=== PATIENT | female | born 1970 | race Caucasian/White ===

== ENCOUNTER 2019-06-09 20:22 | Emergency (ER) | payer OTHER ==
[2019-06-09] MEDS ORDERED: ONDANSETRON 4 MG TAB.RAPDIS PO ONE (21:09)
--- NOTE | 2019-06-09 21:10 | ER Document Report ---
ED Medical Screen (RME) - General Stated Complaint: JAW PAIN/NECK AND UPPER PAIN/VOMITING Time Seen by Provider: 06/09/19 21:04 Mode of Arrival: Wheelchair Information source: Patient Notes: 49-year-old female with history of high blood pressure and psoriasis presents emergency department with reports that this morning after eating peanut butter toast she had severe upper chest pain into her neck. She reports she kept belching. She reports she is had this feeling all day. After 2 mile walk she came home and had severe diarrhea. She also reports vomiting. Denies history of cardiac disease. Reports she has been drinking a lot more wine these days. Has not had any today. Patient complains of nausea also. I have greeted and performed a rapid initial assessment of this patient. A comprehensive ED assessment and evaluation of the patient, analysis of test results and completion of the medical decision making process will be conducted by additional ED providers. - Related Data Allergies/Adverse Reactions: No Known Allergies Allergy (Unverified 06/09/19 21:03) Physical Exam - Vital signs Vitals: Temp Pulse Resp BP Pulse Ox 98.7 F 84 16 179/97 H 100 06/09/19 20:29 06/09/19 20:29 06/09/19 20:29 06/09/19 20:29 06/09/19 20:29 Course - Vital Signs Vital signs: Temp Pulse Resp BP Pulse Ox 98.7 F 84 16 179/97 H 100 06/09/19 20:29 06/09/19 20:29 06/09/19 20:29 06/09/19 20:29 06/09/19 20:29
--- NOTE | 2019-06-09 21:57 | RADIOLOGY REPORT (SQ) ---
EXAM DESCRIPTION: XR CHEST 1 VIEW COMPLETED DATE/TME: 06/09/2019 21:07 CLINICAL HISTORY: 49 years Female JAW PAIN COMPARISON: None. FINDINGS: The cardiomediastinal silhouette appears unremarkable. No consolidating infiltrates or pleural effusions. No pneumothorax. Tiny metallic object overlies the central chest of uncertain clinical significance. This may represent something overlying the patient such as a snap. IMPRESSION: No acute abnormality is identified. Question foreign object overlying the patient versus other location
[2019-06-09] MEDS ORDERED: PANTOPRAZOLE SODIUM 40 MG VIAL IV ONE (22:14)
[2019-06-09] MEDS ORDERED: MAG HYDROX/AL HYDROX/SIMETH SUSP 30 ML UDCUP PO ONE (22:15)
[2019-06-09 22:28] LABS: APPEARANCE,URINE SLIGHTLY-CLOUDY; BILIRUBIN,URINE NEGATIVE (NEGATIVE); COLOR,URINE YELLOW; GLUCOSE, URINE NEGATIVE (NEGATIVE); KETONES,URINE 80 mg/dL (NEGATIVE); LEUKOCYTE ESTERASE,URINE NEGATIVE (NEGATIVE); NITRITE,URINE NEGATIVE (NEGATIVE); PROTEIN,URINE 30 mg/dL (NEGATIVE); URINE SPECIFIC GRAVITY 1.026; UROBILINOGEN,URINE NEGATIVE mg/dL (<2.0)
[2019-06-09 22:35] LABS: ABSOLUTE LYMPHOCYTES (AUTO) 0.6 10^3/uL (0.5-4.7); ABSOLUTE MONOCYTES (AUTO) 0.6 10^3/uL (0.1-1.4); ABSOLUTE NEUT (AUTO) 4.5 10^3/uL (1.7-8.2); BASOPHILS % (AUTO) 0.8 % (0-2); EOSINOPHILS % (AUTO) 0.1 % (0-6); HEMATOCRIT 41.1 % (36.0-47.0); HEMOGLOBIN 14.3 g/dL (12.0-15.5); LYMPHOCYTES % (AUTO) 11.1 % (13-45); MEAN CORPUSCULAR HEMOGLOBIN 34.5 pg (27.0-33.4); MEAN CORPUSCULAR HGB CONC 34.8 g/dL (32.0-36.0); MEAN CORPUSCULAR VOLUME 99 fl (80-97); MONOCYTES % (AUTO) 9.8 % (3-13); PLATELET COUNT 249 10^3/uL (150-450); RED BLOOD COUNT 4.15 10^6/uL (3.72-5.28); RED CELL DISTRIBUTION WIDTH 14.2 % (11.5-14.0); SEGMENTED NEUTROPHILS % (AUTO) 78.2 % (42-78); TOTAL CELLS COUNTED % (AUTO) 100 %; WHITE BLOOD COUNT 5.7 10^3/uL (4.0-10.5)
[2019-06-09 22:51] LABS: ALKALINE PHOSPHATASE 102 U/L (38-126); AMYLASE 65 U/L (30-110); ANION GAP 12 (5-19); ASPARTATE AMINO TRANSFERASE 127 U/L (14-36); BILIRUBIN,TOTAL 0.9 mg/dL (0.2-1.3); BLOOD UREA NITROGEN 14 mg/dL (7-20); CALCIUM 9.7 mg/dL (8.4-10.2); CARBON DIOXIDE 27 mmol/L (22-30); CHLORIDE 92 mmol/L (98-107); GLUCOSE 97 mg/dL (75-110); POTASSIUM 4.3 mmol/L (3.6-5.0); TOTAL PROTEIN 7.8 g/dL (6.3-8.2)
--- NOTE | 2019-06-09 22:57 | ER Document Report ---
ED General - General Chief Complaint: Epigastric Pain Stated Complaint: JAW PAIN/NECK AND UPPER PAIN/VOMITING Time Seen by Provider: 06/09/19 21:04 Mode of Arrival: Wheelchair - [facility] Notes: Chief complaint: Epigastric pain HPI:49-year-old female with history of high blood pressure and psoriasis presents emergency department with reports that this morning after eating peanut butter toast she had severe burning upper chest pain into her neck. She reports she kept belching. She reports she is had this feeling all day. After 2 mile walk she came home and had severe diarrhea. She also reports vomiting. Denies history of cardiac disease. Reports she has been drinking a lot more wine recently. She says that she drinks boxed wine from the refrigerator and may have as much is 6 to 8 glasses a day. She has not consumed any wine today. Patient complains of nausea also. Additionally notes that she started a new multivitamin approximately a week ago. Patient has had a past cholecystectomy. History of hypertension. Patient is not diabetic. Non-smoker. She is not treated for hyperlipidemia. Family history is negative for coronary disease. She has no personal history of coronary disease. She has no personal nor family history of thromboembolic disease. HEART Score: HISTORY 0 ECG 0 AGE 1 RISK FACTORS 1 TROPONIN 0 TOTAL: 2 If HEART score is < or = 3 AND both tronponin measurments are normal, the 30 day risk of a major adverse cardiac event (all-cause mortality, myocardia infarction or need for coronary revscularization) is < 1% (Sensitivity 100%, NPV 100%). - Related Data Allergies/Adverse Reactions: No Known Allergies Allergy (Unverified 06/09/19 21:03) Past Medical History - General Information source: Patient, [facility] Records - Social History Smoking Status: Never Smoker Frequency of alcohol use: Heavy Drug Abuse: None Lives with: Family Family History: Hypertension. denies: CAD Patient has homicidal ideation: No - Past Medical History Cardiac Medical History: Denies: Hx Coronary Artery Disease, Hx DVT, Hx Pulmonary Embolism Pulmonary Medical History: Denies: None Neurological Medical History: Reports: Hx Migraine Endocrine Medical History: Denies: Hx Diabetes Mellitus Type 1, Hx Diabetes Mellitus Type 2 Malignancy Medical History: Denies: None GI Medical History: Denies: Hx Cirrhosis, Hx Gastritis, Hx Gastroesophageal Reflux Disease, Hx Pancreatitis Skin Medical History: Reports Hx Psoriasis Psychiatric Medical History: Reports: Hx Anxiety Past Surgical History: Reports: Hx Cholecystectomy Review of Systems - Review of Systems Notes: Constitutional: Negative for fever. HENT: Negative for sore throat. Eyes: Negative for visual changes. Cardiovascular: As per HPI. Respiratory: Negative for shortness of breath. Gastrointestinal: As per HPI. Genitourinary: Negative for dysuria. Musculoskeletal: Negative for back pain. Skin: Negative for rash. Neurological: Negative for headaches, weakness or numbness. 10 point ROS negative except as marked above and in HPI. Physical Exam - Vital signs Vitals: Temp Pulse Resp BP Pulse Ox 98.7 F 84 16 179/97 H 100 06/09/19 20:29 06/09/19 20:29 06/09/19 20:29 06/09/19 20:29 06/09/19 20:29 - Notes Notes: GENERAL: Well-developed well-nourished appearing in no acute distress. SKIN: Good turgor. Widespread psoriatic plaques. HEAD: Normocephalic atraumatic. EYES: PERRLA. EOMI. Conjunctivae and sclerae clear. EARS: CANALS AND TMS CLEAR. NOSE: CLEAR. MOUTH: Moist mucosa. Good dentition. No stridor or edema. No drooling. NECK: Supple. No masses or thyromegaly. No adenopathy. Carotids 2+ without bruits. No JVD. BACK: Symmetrical without tenderness. CHEST: Respirations unlabored. Breath sounds clear and symmetrical. HEART: Regular rhythm. No murmur gallop or rub. ABDOMEN: Mild epigastric tenderness. Soft without masses, organomegaly or rebound. Bowel sounds normally active. No bruits. GENITALIA: Deferred. EXTREMITIES: No edema. No calf tenderness. Cap refill less than 1.5 seconds. Dorsalis pedis and posterior tibial pulses 3+ and symmetrical. NEUROLOGICAL: GCS 15. Alert and oriented x3. Normal gait. Fluent speech. Cranial nerves II through XII intact. Sensorimotor and cerebellar normal. Normal tone. PSYCHIATRIC: Appropriate affect. Course - Re-evaluation Re-evalutation: 06/10/19 02:56 Findings are consistent with alcoholic gastritis and alcoholic hepatitis. Patient has been advised to abstain from all alcohol intake. She was treated here with some IV Protonix and also a GI cocktail with symptomatic improvement. Transaminase values are mildly elevated. Lipase is normal. CBC shows some macrocytosis and is otherwise unremarkable. 2 normal EKGs 3 hours apart while in the ED. 2 normal troponins also. Patient appears stable for discharge at this time and is symptomatically improved. - Vital Signs Vital signs: Temp Pulse Resp BP Pulse Ox 98.4 F 94 15 147/83 H 97 06/10/19 01:18 06/10/19 01:18 06/10/19 01:18 06/10/19 01:18 06/10/19 01:18 - Laboratory Result Diagrams: 06/09/19 22:22 06/09/19 22:22 Laboratory results interpreted by me: 06/09/19 06/09/19 06/09/19 21:55 22:22 22:22 MCV 99 H MCH 34.5 H RDW 14.2 H Lymph % (Auto) 11.1 L Seg Neutrophils % 78.2 H Sodium 130.6 L Chloride 92 L AST 127 H ALT 123 H Urine Protein 30 H Urine Ketones 80 H Urine Ascorbic Acid 20 H Discharge - Discharge Clinical Impression: Alcoholic gastritis Qualifiers: Chronicity: acute Gastritis bleeding: without bleeding Qualified Code(s): K29.20 - Alcoholic gastritis without bleeding Alcoholic hepatitis Qualifiers: Ascites presence: without ascites Qualified Code(s): K70.10 - Alcoholic hepatitis without ascites Condition: Stable Disposition: HOME, SELF-CARE Additional Instructions: Alcoholic Hepatitis You have inflammation of the liver caused by alcohol. This is called "alcoholic hepatitis." Symptoms can include malaise, fatigue, lack of appetite, nausea and vomiting, dark urine, and jaundice. In the long run, alcohol damages the liver to cause cirrhosis. There is no cure for alcoholic hepatitis. The inflammation will go away if you stop drinking. While you are ill, you may receive medication to make you more comfortable. Do not drink alcohol, and don't take any drug or medication not approved by your doctor. Rest and try to eat a healthy diet. Call the doctor if vomiting or abdominal pain become severe. Gastritis You have an inflammation of the stomach called gastritis. This commonly causes upper abdominal pain, nausea, and vomiting. In severe cases, bleeding of the stomach lining can occur. Gastritis can be caused by bacteria or viruses, alcohol, or stomach-irritating drugs. Begin with sips of clear liquids. Take increasing amounts of fluid over the first 24 hours. Then start small amounts of bland foods (such as dry toast, applesauce, mashed potato). Gradually resume your usual diet. You should take antacids every two hours until the pain has subsided. Acid-suppressing drugs may be prescribed as well. Avoid aspirin, caffeine, tobacco, and alcohol. If the abdominal pain worsens, or there is evidence of major bleeding in the stomach (such as black, tarry stool, bloody or black vomit, or lightheadedness), you should return immediately. Call the doctor if you aren't improved in 24 to 36 hours. Do not drink any beer, wine, whiskey. Take prescribed medication as directed. Follow-up with referral doctor as instructed. Return here as needed for new or worsening symptoms: Pain that is worsening or unimproved Uncontrolled vomiting High fever or shaking chills Overall worsening Prescriptions: Pantoprazole Sodium [Protonix [address] Tablet] 40 mg PO QAMPM 30 Days #60 tablet. Metoclopramide HCl [Reglan 10 mg Tablet] 10 mg PO ACHS #120 tablet Referrals: [facility] [Provider Group] - Follow up as needed
[2019-06-10] MEDS ORDERED: LIDOCAINE 2% VISCOUS SOLN 15 ML UDCUP PO ONE (01:34)
[2019-06-10 03:32] VITALS: BP 157/85
--- NOTE | 2019-06-10 14:26 | EKG REPORT ---
SEVERITY:- OTHERWISE NORMAL ECG - SINUS RHYTHM LEFT AXIS DEVIATION : Confirmed by: Tiffanie Mcfarlane MD 10-Jun-2019 14:26:11
--- NOTE | 2019-06-10 14:26 | EKG REPORT ---
SEVERITY:- OTHERWISE NORMAL ECG - SINUS RHYTHM LEFT AXIS DEVIATION : Confirmed by: Tiffanie Mcfarlane MD 10-Jun-2019 14:26:07
== END 2019-06-10 03:30 | disposition home or self-care (01) ==
LOC: ER 20:22
DX: K29.20 Alcoholic gastritis without bleeding (principal); K70.10 Alcoholic hepatitis without ascites; R07.9 Chest pain, unspecified; M54.2 Cervicalgia; R14.2 Eructation; R11.2 Nausea with vomiting, unspecified; R19.7 Diarrhea, unspecified; L40.9 Psoriasis, unspecified; I10 Essential (primary) hypertension; Z90.49 Acquired absence of other specified parts of digestive tract
CPT/HCPCS: 93005 ×2; 99284; 96374; 36415; 82150; 83690; 85025; 80053; 81001; 84484; 71045; 93010 ×2; S0119; J3490; C9113

== ENCOUNTER → 2020-03-03 | Outpatient (CLI) | payer OTHER ==
[~2020-03-03] MED LIST: COVID-19 VACCINE (PFIZER)/PF 30 MCG/0.3 ML VIAL IM ONE; EPINEPHRINE INJ/PF 1 MG/1 ML AMPULE IM PRN
== END ==
LOC: EMPHEALTH 11:20
PROVIDERS: ATTEND Internal Medicine
DX: Z23 Encounter for immunization (principal)
CPT/HCPCS: 91300